=== PATIENT | male | born 1980 | race Caucasian/White ===

== ENCOUNTER 2016-12-23 15:36 | Emergency (ER) | payer SELFPAY ==
[2016-12-23 15:36] VITALS: BP 161/89
[2016-12-23 15:53] LABS: HEMATOCRIT 47.3 % (39.0-53.0); RED BLOOD COUNT 5.14 x10^6/uL (4.30-5.70); RED CELL DISTRIBUTION WIDTH 13.3 % (11.5-14.5); WHITE BLOOD COUNT 8.5 x10^3/uL (4.0-11.0)
--- NOTE | 2016-12-23 16:00 | RAD ---
Indication: Head injury and paralysis Axial imaging through the brain and cervical spine was performed without contrast. Sagittal and coronal reformations were also performed. CT head: The ventricles and sulci are within normal limits. No sulcal effacement, midline shift or hemorrhage is detected. The cisterns are patent. The visualized paranasal sinuses are clear. Impression: No acute intracranial process is detected. CT cervical spine: Alignment is normal. The prevertebral tissues are within normal limits. No fractures are seen. The odontoid is intact. Impression: No acute bony abnormality is detected. PQRS Compliance Statement: One or more of the following individualized dose reduction techniques were utilized for this examination: 1. Automated exposure control 2. Adjustment of the mA and/or kV according to patient size 3. Use of iterative reconstruction technique
[2016-12-23 16:07] LABS: PROTHROMBIN TIME PATIENT 12.9 SEC (11.7-14.0)
[2016-12-23 16:13] LABS: CALCIUM 8.9 mg/dL (8.5-10.1); GFR 83.6; POTASSIUM 3.6 mmol/L (3.5-5.1)
--- NOTE | 2016-12-23 16:15 | EKG ---
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
[2016-12-23 16:19] LABS: ALBUMIN 3.9 g/dL (3.4-5.0); ALBUMIN/GLOBULIN RATIO 0.9 (1.0-1.7); TOTAL BILIRUBIN 0.3 mg/dL (0.2-1.0); TOTAL PROTEIN 8.1 g/dL (6.4-8.2)
--- NOTE | 2016-12-23 16:25 | ED.ADGEN ---
Past Medical History Past Medical History: No Pertinent History, Unknown Past Surgical History: No Surgical History, Knee Replacement Alcohol Use: Occasionally Drug Use: None Adult General Chief Complaint Chief Complaint: TRAUMA ACTIVATION [facility] HPI Patient is a 36 year old male who presents with trauma activation. Patient had an unwitnessed fall in the shower and reportedly hit his head which was then followed by a 5 minute grand mal seizure. Following the seizure, the patient was found to be apneic and pulseless per his fiance who performed CPR for 1 minute with return of spontaneous circulation. Upon EMS arrival, the patient had abnormal pupils, abnormal speech and weakness of his left upper and lower extremities with stable vital signs. Dextrose was normal. The patient was placed in spinal immobilization and brought to the emergency department for stoke/trauma activation. On ED arrival, the patient has has expressive aphasia with dense left-sided motor deficits. Per fianc, the patient does not have history of seizure disorder or heart disease. History is limited by the patient' s clinical condition. Time of last known normal/EMS dispatch, 15:56. Review of Systems Review of Systems ROS as per HPI. Limited by clinical condition. Allergies Allergies Allergies Coded Allergies Type Severity Reaction Last Updated Verified amoxicillin Allergy Intermediate 06/06/16 Yes latex Allergy Intermediate 06/06/16 Yes Physical Exam Physical Exam Constitutional: Well developed, well nourished, full spinal precautions. HENT: Normocephalic, atraumatic, bilateral external ears normal, oropharynx moist. Eyes: PEERL. Neck: Supple, cervical collar in place. Cardiovascular:Heart rate regular rhythm, no murmur. Lungs & Thorax: Bilateral breath sounds clear to auscultation. Abdomen: Bowel sounds normal, soft, no tenderness. Skin: Warm, dry, no erythema. Back: No midline tenderness or bruising. Extremities: No deformities. Neurologic: Alert and oriented X person, follows basic commands, cranial nerves , expressive aphasia, but otherwise intact, dense paresis of left upper and left lower extremity, unable to provide any resistance against gravity. Decreased sensation left upper left lower extremity. Current Patient Data Vital Signs Vital Signs Date Time Temp Pulse Resp B/P (MAP) Pulse Ox O2 Delivery O2 Flow Rate FiO2 12/23/16 15:36 77 18 Room Air Lab Values Laboratory Tests Test 12/23/16 15:35 White Blood Count 8.5 x10^3/uL (4.0-11.0) Red Blood Count 5.14 x10^6/uL (4.30-5.70) Hemoglobin 16.0 g/dL (13.0-17.5) Hematocrit 47.3 % (39.0-53.0) Mean Corpuscular Volume 92 fL (79-100) Mean Corpuscular Hemoglobin 31 pg (25-35) Mean Corpuscular Hemoglobin Concent 34 g/dL (31-37) Red Cell Distribution Width 13.3 % (11.5-14.5) Platelet Count 195 x10^3/uL (140-400) Prothrombin Time 12.9 SEC (11.7-14.0) Prothrombin Time INR 1.0 (0.8-1.1) PTT 29 SEC (24-38) Sodium Level 139 mmol/L (136-145) Potassium Level 3.6 mmol/L (3.5-5.1) Chloride Level 104 mmol/L (98-107) Carbon Dioxide Level 24 mmol/L (21-32) Anion Gap 11 (6-14) Blood Urea Nitrogen 18 mg/dL (8-26) Creatinine 1.0 mg/dL (0.7-1.3) Estimated GFR (Cockcroft-Gault) 83.6 BUN/Creatinine Ratio 18 (6-20) Glucose Level 111 mg/dL (70-99) H Calcium Level 8.9 mg/dL (8.5-10.1) Total Bilirubin 0.3 mg/dL (0.2-1.0) Aspartate Amino Transferase (AST) 26 U/L (15-37) Alanine Aminotransferase (ALT) 57 U/L (16-63) Alkaline Phosphatase 88 U/L (46-116) Total Protein 8.1 g/dL (6.4-8.2) Albumin 3.9 g/dL (3.4-5.0) Albumin/Globulin Ratio 0.9 (1.0-1.7) L Ethyl Alcohol Level < 10 mg/dL (0-10) Laboratory Tests 12/23/16 15:35 Laboratory Tests 12/23/16 15:35 EKG EKG [EKG: Normal sinus rhythm, no acute ST-T wave changes.] Radiology/Procedures Radiology/Procedures [CT head/cervical spine without contrast: No obvious intracranial abnormality or cervical spine abnormality per radiology report.] Impressions: Patient with his head trauma with seizure episode with student assistant dense left- sided neurologic deficits concern for hemorrhage, versus acute ischemic CVA versus Dano's paralysis versus unknown cause. Patient with his reported history of possible cardiac or respiratory arrest, vital signs stable, airway intact, normal heart attack rhythm. Course & Med Decision Making Course & Med Decision Making Pertinent Labs and Imaging studies reviewed. (See chart for details) CT head does not show any evidence of acute ICH. Concern remains for possible large vessel thromboembolus given patient's neurologic deficits. IV TPA considered but contraindicated given h/o trauma. Case reviewed in detail with Dr. Jacques extrusion bender for neurology who is in agreement that IV TPA is contraindicated. He agrees to accept patient. Patient emergently transferred to [facility] for evaluation for emergent intervention prior to completion of studies as to avoid delay in care. Family members updated, patient stable for transport. Dragon Disclaimer Dragon Disclaimer This electronic medical record was generated, in whole or in part, using a voice recognition dictation system. YULIA SANTOS DO December 23, 2016 16:25
== END 2016-12-23 16:06 | disposition short-term general hospital (02) ==
LOC: ER 15:36
DX: G40.409 Other generalized epilepsy and epileptic syndromes, not intractable, without status epilepticus (principal); R06.81 Apnea, not elsewhere classified; R53.1 Weakness; R47.01 Aphasia
CPT/HCPCS: 36415; 70450; 72125; 80053; 85027; 85610; 85730; 93005; 99285; G0480